=== PATIENT | female | born 1970 | race Caucasian/White ===

== ENCOUNTER → 2016-11-25 | Outpatient (CLI) | payer MEDICAID ==
[~2016-11-25] MED LIST: ALBUTEROL0.83 MG/ML IH; ASPIRIN 81M81 MG/TA2 PO; CALCIUM 600-D 61 TAB PO; CANA100T PO; FISH OIL 1000MG1 CAP PO; FISH OIL500 MG PO; FLEXERIL 1010 MG/TAB PO; GLUCOPHAGE850 MG/TAB PO; K-DUR20 MEQ PO; LEVEMIR FLEX100 U/ML SQ; LORTAB 7.5/5001 TAB PO; NORCO 325 MG-101 TAB PO; NORCO 325 MG-51 TAB PO; NOVOLOG FLEX100 U/ML SQ; OMNICEF 300MG300 MG PO; PHENERGAN 25 TA25 MG PO; PRAVACHOL 40MG40 MG PO; TRADJENTA5 MG PO; ZESTRIL 5MG5 MG PO; ZITHROMAX 250M250 MG PO; [UNRECOGNIZED DRUG - REMARK]
== END ==
LOC: COL.RAD 15:15
DX: G62.9 Polyneuropathy, unspecified (principal)

== ENCOUNTER → 2017-03-31 | Outpatient (CLI) | payer MEDICAID | LOC: SUN.DIA 04-29 11:58 | DX: E11.9 Type 2 diabetes mellitus without complications (principal); Z79.4 Long term (current) use of insulin; E78.5 Hyperlipidemia, unspecified; I10 Essential (primary) hypertension; Z71.3 Dietary counseling and surveillance; Z87.891 Personal history of nicotine dependence | CPT/HCPCS: G0108 ==

== ENCOUNTER → 2017-04-01 | Outpatient (CLI) | payer MEDICAID | LOC: SUN.DIA 13:37 | DX: E11.9 Type 2 diabetes mellitus without complications (principal); Z79.4 Long term (current) use of insulin; E78.5 Hyperlipidemia, unspecified; I10 Essential (primary) hypertension; E66.9 Obesity, unspecified; Z68.42 Body mass index [BMI] 45.0-49.9, adult; Z71.3 Dietary counseling and surveillance; Z87.891 Personal history of nicotine dependence | CPT/HCPCS: G0108 ==

== ENCOUNTER → 2017-06-04 | Outpatient (CLI) | payer MEDICAID ==
[~2017-06-04] MED LIST changes: +JANUVIA 100MG100 MG PO; +LOVAZA1 GM PO; +NEURONTIN300 MG/CAP PO; +OSCAL 500 TAB500 MG PO; +PRILOSEC 20MG20 MG PO; +ULTRAM 50MG TAB50 MG PO
== END ==
LOC: SUN.DIA 09:34
DX: E11.9 Type 2 diabetes mellitus without complications (principal); Z79.4 Long term (current) use of insulin; E78.5 Hyperlipidemia, unspecified; I10 Essential (primary) hypertension; E66.9 Obesity, unspecified; Z68.42 Body mass index [BMI] 45.0-49.9, adult; Z71.3 Dietary counseling and surveillance; Z87.891 Personal history of nicotine dependence
CPT/HCPCS: G0108

== ENCOUNTER 2017-06-22 22:43 | Emergency (ER) | payer MEDICAID ==
[~2017-06-22] VITALS: Ht 170.2 cm; Wt 117.7 kg
[2017-06-22 22:51] VITALS: BP 187/78; TEMP 98.1
[2017-06-22] MEDS ORDERED: ULTRAM 50MG TAB50 MG PO (23:42)
[2017-06-22 23:49] VITALS: PULSE 91
== END 2017-06-22 23:49 | disposition home or self-care (01) ==
LOC: COL.ER 22:43
DX: M54.32 Sciatica, left side (principal); E11.69 Type 2 diabetes mellitus with other specified complication; M86.9 Osteomyelitis, unspecified; E66.9 Obesity, unspecified; Z68.41 Body mass index [BMI] 40.0-44.9, adult; Z87.891 Personal history of nicotine dependence; Z79.4 Long term (current) use of insulin; Z79.82 Long term (current) use of aspirin
CPT/HCPCS: J1170; J2550

== ENCOUNTER 2017-06-25 23:35 | Emergency (ER) | payer MEDICAID ==
[~2017-06-25] VITALS: Ht 170.2 cm; Wt 122.7 kg
[2017-06-25 23:46] VITALS: TEMP 98.1
[2017-06-26 03:26] VITALS: BP 157/85; PULSE 98
[2017-06-28] MEDS ORDERED: NORCO 325 MG-51 TAB PO (18:26)
== END 2017-06-26 03:28 | disposition home or self-care (01) ==
LOC: COL.ER 23:35
DX: M54.32 Sciatica, left side (principal); E11.9 Type 2 diabetes mellitus without complications; Z79.4 Long term (current) use of insulin; Z79.82 Long term (current) use of aspirin
CPT/HCPCS: J1170; J1885; J2360

== ENCOUNTER → 2017-06-28 | Emergency (ER) | payer MEDICAID ==
[~2017-06-28] VITALS: Ht 170.2 cm; Wt 113.6 kg
[2017-06-28 16:28] VITALS: BP 165/94; PULSE 119; TEMP 97.6
== END ==
LOC: COL.ER 16:16
DX: M54.42 Lumbago with sciatica, left side (principal); E11.9 Type 2 diabetes mellitus without complications; Z79.4 Long term (current) use of insulin; Z79.82 Long term (current) use of aspirin; Z98.890 Other specified postprocedural states
CPT/HCPCS: J1885; J2360

== ENCOUNTER → 2017-07-22 | Outpatient (CLI) | payer MEDICAID ==
[2017-07-22 16:02] LABS: BASO % 0.3 % (0.0-2.0); EOS % 0.5 % (0-4.0); GRAN # 5.9 (1.4-6.5); GRAN % 67.5 % (42.2-75.2); HEMATOCRIT 43.4 % (37.0-47.0); HEMOGLOBIN 14.6 g/dl (12.5-16.0); LYMPH # 2.1 (1.2-3.4); LYMPH % 24.7 % (20.0-51.0); MEAN CELL VOLUME 85 fl (80.0-100.0); MEAN CORPUSCULAR HEMOGLOBIN 29 pg (27.0-31.0); MEAN CORPUSCULAR HGB CONC 34 g/dl (33.0-37.0); MEAN PLATELET VOLUME 10.7 fl (7.4-10.4); MONO # 0.6 (0.1-0.6); MONO % 6.8 % (1.7-9.3); PLATELET COUNT 266 K/mm3 (130-400); RED BLOOD COUNT 5.13 M/mm3 (4.10-5.30); WHITE BLOOD COUNT 8.7 K/mm3 (4.8-10.8)
[2017-07-22 16:16] LABS: ADJUSTED CALCIUM 9.5 mg/dL (8.4-10.2); ALBUMIN 3.6 gm/dL (3.5-5.0); BILIRUBIN,TOTAL 0.8 mg/dL (0.0-1.0); CALCIUM 9.2 mg/dL (8.4-10.2); CREATININE, serum 0.81 mg/dL (0.52-1.25); POTASSIUM 4.4 mmol/L (3.4-5.0); TOTAL PROTEIN 7.3 gm/dL (6.4-8.2)
== END ==
LOC: COL.RAD 15:32
PROVIDERS: Registered Nurse
DX: M51.34 Other intervertebral disc degeneration, thoracic region (principal); M51.36 Other intervertebral disc degeneration, lumbar region; Z98.890 Other specified postprocedural states

== ENCOUNTER 2017-07-30 13:15 | Outpatient (RCR) | payer MEDICAID ==
[2017-08-22] MEDS ORDERED: TAMIFLU 75MG75 MG PO (12:38)
[2017-08-22] MEDS ORDERED: DOXYCYCLINE 10100 MG PO (12:38)
== END 2017-09-20 | disposition home or self-care (01) ==
LOC: WSPT
DX: M54.32 Sciatica, left side (principal); Z98.890 Other specified postprocedural states
CPT/HCPCS: G0283-GP

== ENCOUNTER 2017-08-22 10:42 | Emergency (ER) | payer MEDICAID ==
[~2017-08-22] VITALS: Ht 157.5 cm; Wt 113.6 kg
[2017-08-22 11:05] VITALS: TEMP 98.4
[2017-08-22 11:56] LABS: INFLUENZA A NEGATIVE; INFLUENZA B NEGATIVE
[2017-08-22] MEDS ORDERED: TAMIFLU 75MG75 MG PO (12:38)
[2017-08-22] MEDS ORDERED: DOXYCYCLINE 10100 MG PO (12:38)
[2017-08-22 13:08] VITALS: BP 126/69; PULSE 88
== END 2017-08-22 13:25 | disposition home or self-care (01) ==
LOC: COL.ER 10:42
PROVIDERS: Nurse Practitioner
DX: J06.9 Acute upper respiratory infection, unspecified (principal); I10 Essential (primary) hypertension; E11.9 Type 2 diabetes mellitus without complications; E78.5 Hyperlipidemia, unspecified; Z90.49 Acquired absence of other specified parts of digestive tract; Z79.4 Long term (current) use of insulin

== ENCOUNTER 2017-09-22 16:13 | Emergency (ER) | payer MEDICAID ==
[~2017-09-22] VITALS: Ht 160 cm; Wt 104.5 kg
[~2017-09-22 16:13] MED LIST changes: +DOXYCYCLINE 10100 MG PO; +TAMIFLU 75MG75 MG PO
[2017-09-22 16:34] VITALS: TEMP 99.3
[2017-09-22] MEDS ORDERED: ZITHROMAX Z PA250 MG PO (18:59)
[2017-09-22 19:19] VITALS: BP 121/52; PULSE 96
== END 2017-09-22 19:50 | disposition home or self-care (01) ==
LOC: COL.ER 16:13
DX: J20.9 Acute bronchitis, unspecified (principal); E11.9 Type 2 diabetes mellitus without complications; I10 Essential (primary) hypertension; Z79.4 Long term (current) use of insulin; Z79.82 Long term (current) use of aspirin; Z87.891 Personal history of nicotine dependence

== ENCOUNTER 2017-11-11 10:42 | Emergency (ER) | payer MEDICAID ==
[~2017-11-11] VITALS: Ht 167.6 cm; Wt 114.1 kg
[~2017-11-11 10:42] MED LIST changes: +ZITHROMAX Z PA250 MG PO
[2017-11-11 11:01] VITALS: BP 170/74
[2017-11-11 11:32] LABS: BASO % 0.4 % (0.0-2.0); EOS # 0.1 (0.0-0.7); EOS % 1.3 % (0-4.0); GRAN # 4.3 (1.4-6.5); GRAN % 60.6 % (42.2-75.2); HEMATOCRIT 38.5 % (37.0-47.0); HEMOGLOBIN 12.8 g/dl (12.5-16.0); LYMPH # 2.2 (1.2-3.4); LYMPH % 30.9 % (20.0-51.0); MEAN CELL VOLUME 85 fl (80.0-100.0); MEAN CORPUSCULAR HEMOGLOBIN 28 pg (27.0-31.0); MEAN CORPUSCULAR HGB CONC 33 g/dl (33.0-37.0); MEAN PLATELET VOLUME 10.7 fl (7.4-10.4); MONO # 0.5 (0.1-0.6); MONO % 6.5 % (1.7-9.3); PLATELET COUNT 317 K/mm3 (130-400); RED BLOOD COUNT 4.51 M/mm3 (4.10-5.30); REDCELL DISTRIBUTION WIDTH-CV 12.9 % (11.5-14.5)
[2017-11-11 11:38] LABS: ALBUMIN 3.1 gm/dL (3.5-5.0); BILIRUBIN,TOTAL 0.3 mg/dL (0.0-1.0); C-REACTIVE PROTEIN 1.8 mg/dL (0.0-0.9); CREATININE, serum 0.68 mg/dL (0.52-1.25); POTASSIUM 3.7 mmol/L (3.4-5.0); TOTAL PROTEIN 7.5 gm/dL (6.4-8.2)
[2017-11-11] MEDS ORDERED: CEPHALEXIN500 M1 PO (12:04)
[2017-11-11 13:46] VITALS: PULSE 87; TEMP 97.3
== END 2017-11-11 12:34 | disposition home or self-care (01) ==
LOC: COL.ER 10:42
PROVIDERS: Physician Assistant
DX: S91.301A Unspecified open wound, right foot, initial encounter (principal); E11.65 Type 2 diabetes mellitus with hyperglycemia; E11.40 Type 2 diabetes mellitus with diabetic neuropathy, unspecified; Z79.4 Long term (current) use of insulin; Z79.82 Long term (current) use of aspirin; X58.XXXA Exposure to other specified factors, initial encounter

== ENCOUNTER → 2018-04-01 | Outpatient (CLI) | payer MEDICAID ==
[~2018-04-01] MED LIST changes: +CEPHALEXIN500 M1 PO
== END ==
LOC: SUN.DIA
DX: E11.9 Type 2 diabetes mellitus without complications (principal); E78.5 Hyperlipidemia, unspecified; I10 Essential (primary) hypertension; E66.9 Obesity, unspecified; F17.210 Nicotine dependence, cigarettes, uncomplicated
CPT/HCPCS: G0108

== ENCOUNTER → 2018-05-25 | Outpatient (CLI) | payer MEDICARE, MEDICAID ==
[~2018-05-25] VITALS: Ht 167.6 cm; Wt 115.4 kg
[2018-05-25 10:15] VITALS: BP 116/60; PULSE 80
== END ==
LOC: LIGHT 08:29
DX: E11.9 Type 2 diabetes mellitus without complications (principal); E78.5 Hyperlipidemia, unspecified; G47.33 Obstructive sleep apnea (adult) (pediatric); E66.01 Morbid (severe) obesity due to excess calories; Z71.3 Dietary counseling and surveillance; Z68.41 Body mass index [BMI] 40.0-44.9, adult
CPT/HCPCS: G0463

== ENCOUNTER 2018-12-03 21:16 | Emergency (ER) | payer MEDICARE, MEDICAID | END 2018-12-03 21:37 | disposition left against medical advice (07) | LOC: COL.ER 21:16 | DX: Z72.9 Problem related to lifestyle, unspecified (principal) ==

== ENCOUNTER → 2019-01-26 | Emergency (ER) | payer MEDICARE, MEDICAID ==
[~2019-01-26] VITALS: Ht 167.6 cm; Wt 115.0 kg
[2019-01-26 15:35] VITALS: BP 107/63; PULSE 94; TEMP 98
== END ==
LOC: COL.ER 15:22
DX: H69.91 Unspecified Eustachian tube disorder, right ear (principal); E11.9 Type 2 diabetes mellitus without complications; I10 Essential (primary) hypertension; Z79.4 Long term (current) use of insulin; Z79.82 Long term (current) use of aspirin; Z88.5 Allergy status to narcotic agent

== ENCOUNTER → 2019-04-22 | Outpatient (CLI) | payer MEDICARE, MEDICAID | LOC: COL.RAD 11:35 | DX: R05 Cough (principal); R06.02 Shortness of breath ==

== ENCOUNTER 2019-05-22 22:08 | Inpatient (IN) | payer MEDICARE, MEDICAID ==
[~2019-05-22] VITALS: Ht 162.6 cm; Wt 103.6 kg
[2019-05-22 22:49] LABS: BASO % 0.4 % (0.0-2.0); EOS # 0.1 (0.0-0.7); EOS % 0.5 % (0-4.0); GRAN # 7.4 (1.4-6.5); GRAN % 67.1 % (42.2-75.2); HEMATOCRIT 38.5 % (37.0-47.0); HEMOGLOBIN 13.1 g/dl (12.5-16.0); LYMPH # 2.5 (1.2-3.4); LYMPH % 22.7 % (20.0-51.0); MEAN CELL VOLUME 86 fl (80.0-100.0); MEAN CORPUSCULAR HEMOGLOBIN 29 pg (27.0-31.0); MEAN CORPUSCULAR HGB CONC 34 g/dl (33.0-37.0); MEAN PLATELET VOLUME 10.7 fl (7.4-10.4); MONO % 8.9 % (1.7-9.3); PLATELET COUNT 229 K/mm3 (130-400); REDCELL DISTRIBUTION WIDTH-CV 13.1 % (11.5-14.5)
[2019-05-22 23:03] LABS: ALBUMIN 3.6 gm/dL (3.5-5.0); BILIRUBIN,TOTAL 0.6 mg/dL (0.0-1.0); CALCIUM 8.5 mg/dL (8.4-10.2); CREATININE, serum 0.64 (0.52-1.25); POTASSIUM 4.1 mmol/L (3.4-5.0); TOTAL PROTEIN 7.4 gm/dL (6.4-8.2)
[2019-05-23] VITALS (7 sets, daily range): BP systolic 114–151; BP diastolic 52–68; PULSE 84–96; TEMP 97.7–98.7
[2019-05-23 00:22] LABS: TRICYCLIC ANTIDEPRESS URINE NEGATIVE
[2019-05-23 07:14] LABS: HEMOGLOBIN 11.7 g/dl (12.5-16.0); MEAN CELL VOLUME 86 fl (80.0-100.0); MEAN CORPUSCULAR HEMOGLOBIN 29 pg (27.0-31.0); MEAN CORPUSCULAR HGB CONC 33 g/dl (33.0-37.0); PLATELET COUNT 198 K/mm3 (130-400); REDCELL DISTRIBUTION WIDTH-CV 13.1 % (11.5-14.5)
[2019-05-23 07:15] LABS: HEMATOCRIT 35.1 % (37.0-47.0)
--- NOTE | 2019-05-23 07:24 | NUR ---
Vancomycin Initial Dosing Pharmacy Note Ordering provider: Akira Butterfield B.MD Indication/duration: Cellulitis Relevant comorbidities: DM LABS: est Crcl >90 Recommendation: 1.5 g IV q12h Loading dose: 1.5 grams Maintenance dose: 1.5 grams every 12 hours Trough goal: 10-15 ug/mL
[2019-05-23 07:36] LABS: CREATININE, serum 0.5 (0.52-1.25); POTASSIUM 3.5 mmol/L (3.4-5.0)
--- NOTE | 2019-05-23 07:48 | NUR ---
Pt brought up from ER to Rm 319 per cart. Spouse at bedside. Pt called son several times last night and had him come to the hospital. He had fast food with him and not sure if he had brought some for him. Order from Dr Anne is to not allow brought in food to pt. Dr Camacho notified of pt blood sugar of 507. Order received to give 14 units and recheck in 2 hours. Blood sugar was 239 when rechecked and 6 units Novolog given. IV fluids infusing at 125mL/hr in R FA. SBA when ambulating to BR. Call light in reach.
[2019-05-23 08:04] LABS: TSH w REFLEX 1.57 uIU/mL (0.465-4.680)
--- NOTE | 2019-05-23 11:04 | NUR ---
Initial visit; Patient thanked Cut Off Machine Unloader for coming and offering prayer. Cut Off Machine Unloader used sign language to communicate with Dutch patient.
--- NOTE | 2019-05-23 14:44 | NUR ---
SW's met with the patient to discuss discharge plan. The patient speaks Kuwaiti. SW used [employer]. The patient lives in [place] with her daughter's father, Kwadwo Damon. She states that they are friends now. She states that her daughter, Kellen Damon (ph#[phone]), lives nearby. She reports independence with ADLs and has a walker. The patient's PCP is Jin Gallagher APRN and she receives her medications at [facility]. She reports no difficulties obtaining her meds. The patient does not have advanced directives completed and she was not interested in completing them at this time. She states that her next-of-kin is her daughter, Kellen. The patient plans to return back home with Kwadwo upon discharge. The patient did have questions about getting set up with someone who can treat and manage her blood sugar. FAITH notified the patient's Michelle ROPER. SW to continue to follow.
--- NOTE | 2019-05-23 19:00 | NUR ---
PT HAS RECIEVED SCHEDULED MEDS. WENT DOWN FOR MRI, AND HAD A DOPPLER DONE ON LEGS. MRI STATED THAT THERE WAS NO EVIDENCE OF OSTEOMYLITIS. PT VOICED ANXIOUSNES ABOUT HAVING TO GET LEG CUT OFF THROUGHOUT THE DAY. THIS NURSE INFORMED THE PT AND DAUGHTER THAT THE MRI DIDNT LOOK LIKE INFECTION IN THE BONE FROM WHAT IT LOOKED LIKE TO ME ON THE SCAN BUT THE DOCTOR WILL GO OVER IT IN THE MORNING. PT HAS NEEDED S/S INSULIN REGULARLY THIS SHIFT. PT TOOK A SHOWER, THIS NURSE CHANGED DRESSING AFTERWARDS. NO C/O PAIN IN LEG TODAY, PT AND DAUGHTER STATED THAT IT LOOKED AND FELT BETTER TODAY THEN YESTERDAY
--- NOTE | 2019-05-23 20:05 | NUR ---
Shift assessment complete. Pt resting in bed, awake, a&o, cooperative c cares. Pt denies pain or any other c/o at this time. IV patent. Pt denies needs at this time. Family at bedside. Call light in reach, will monitor
[2019-05-24 00:14] VITALS: BP 141/62; PULSE 82; TEMP 98.1
[2019-05-24 04:12] VITALS: BP 110/68; PULSE 78; TEMP 98
[2019-05-24 07:05] LABS: BASO % 0.5 % (0.0-2.0); EOS # 0.2 (0.0-0.7); EOS % 2.5 % (0-4.0); GRAN # 3.1 (1.4-6.5); HEMOGLOBIN 11.7 g/dl (12.5-16.0); LYMPH # 3.4 (1.2-3.4); LYMPH % 46.2 % (20.0-51.0); MEAN CELL VOLUME 87 fl (80.0-100.0); MEAN CORPUSCULAR HEMOGLOBIN 29 pg (27.0-31.0); MEAN CORPUSCULAR HGB CONC 33 g/dl (33.0-37.0); MEAN PLATELET VOLUME 10.8 fl (7.4-10.4); MONO # 0.6 (0.1-0.6); MONO % 8.5 % (1.7-9.3); PLATELET COUNT 220 K/mm3 (130-400); RED BLOOD COUNT 4.09 M/mm3 (4.10-5.30); REDCELL DISTRIBUTION WIDTH-CV 12.9 % (11.5-14.5)
[2019-05-24 07:15] VITALS: BP 128/61; PULSE 79; TEMP 97.6
[2019-05-24 07:15] LABS: HEMATOCRIT 35.5 % (37.0-47.0)
--- NOTE | 2019-05-24 07:15 | NUR ---
Received report, patient is sitting up in recliner awake and alert. Did say hello. Water, call light and personal items are within reach.
[2019-05-24 07:19] LABS: CALCIUM 8.2 mg/dL (8.4-10.2); CREATININE, serum 0.47 (0.52-1.25); POTASSIUM 3.6 mmol/L (3.4-5.0)
[2019-05-24] MEDS ORDERED: DOXYCYCLINE 10100 MG PO (10:27)
[2019-05-24 10:58] VITALS: BP 127/67; PULSE 80; TEMP 97.7
--- NOTE | 2019-05-24 11:11 | NUR ---
FAITH attended clinical rounds. The patient reports that she would just be interested with switching to a new female PCP that can speak icelandic or has translators. FAITH contacted [facility] and the [facility]. [facility] reports that they have three female doctors taking new patients and that they have translators. FAITH met with the patient to inform. FAITH used [employer]. The patient reports that she would be agreeable to being set up with a female PCP at [facility] and did not have a preference on provider. FAITH informed the patient's Lauryn ROPER. The clinical unit educator secured the patient an appointment with Dr. Eneida Arora. The patient is to discharge back home with her friend (Kwadwo) today, 05/24. No additional needs at this time.
--- NOTE | 2019-05-24 11:15 | NUR ---
0730- Pt laying in bed. A & O. Pt states has no pain. Assessment completed. Pt has a wound L plantar foot. L acewrap w/ gauze covering. Wound is clean, dry, intact. L foot has edema, +2 pitting. Skin is warm & intact. Pedal pulses audible by doppler. 1100- Pt up in am, now resting in bed. Pt awaiting discharge. No changes noted to assessment.
--- NOTE | 2019-05-24 15:40 | NUR ---
Patient to discharge home, states daughter will get her. Told her she could dress. Armenian discharge instructions given to patient. Personal belongings being gathered.
--- NOTE | 2019-05-24 17:12 | NUR ---
Patient discharged home with family at 1650. Appointment instructions reviewed with daughter who relayed them to the patient. Verbal understanding was verbalized. Personal items were sent with patient, discharged from floor via wheelchair with personal belongings. Left hospital via private vehicle.
== END 2019-05-24 16:50 | disposition home or self-care (01) | DRG 638 ==
LOC: COL.ER 22:08 → MEDICAL 23:16
PROVIDERS: Emergency Medicine; Physician Assistant; ADMIT Student in an Organized Health Care Education/Training Program
DX: E11.628 Type 2 diabetes mellitus with other skin complications (principal); L03.116 Cellulitis of left lower limb; E66.01 Morbid (severe) obesity due to excess calories; K21.9 Gastro-esophageal reflux disease without esophagitis; Z88.5 Allergy status to narcotic agent; Z91.040 Latex allergy status; E11.65 Type 2 diabetes mellitus with hyperglycemia
CPT/HCPCS: 99222-AI; 99233-AI; 99239; A9585; J0696; J1650; J1815; J2543; J3370; J7030; J7050

== ENCOUNTER 2019-08-13 00:39 | Emergency (ER) | payer MEDICARE, MEDICAID ==
[~2019-08-13] VITALS: Ht 167.6 cm; Wt 115.5 kg
[2019-08-13 00:50] VITALS: BP 146/81; TEMP 97
[2019-08-13] MEDS ORDERED: CIPRODEX OT (01:09)
[2019-08-13 01:27] VITALS: PULSE 82
== END 2019-08-13 01:30 | disposition home or self-care (01) ==
LOC: COL.ER 00:39
DX: H60.92 Unspecified otitis externa, left ear (principal); Z79.4 Long term (current) use of insulin; Z79.82 Long term (current) use of aspirin

== ENCOUNTER 2019-09-26 08:43 | Day surgery (SDC) | payer MEDICARE, MEDICAID ==
[~2019-09-26] VITALS: Ht 167.7 cm; Wt 119.0 kg
[2019-09-26] VITALS (9 sets, daily range): BP systolic 120–164; BP diastolic 75–86; PULSE 80–88; TEMP 97.1
[~2019-09-26 08:43] MED LIST changes: +CIPRODEX OT
[2019-09-26 09:38] LABS: HEMATOCRIT 39.6 % (37.0-47.0); HEMOGLOBIN 13.2 g/dl (12.5-16.0); MEAN CELL VOLUME 85 fl (80.0-100.0); MEAN CORPUSCULAR HEMOGLOBIN 28 pg (27.0-31.0); MEAN CORPUSCULAR HGB CONC 33 g/dl (33.0-37.0); MEAN PLATELET VOLUME 10.7 fl (7.4-10.4); PLATELET COUNT 253 K/mm3 (130-400); RED BLOOD COUNT 4.66 M/mm3 (4.10-5.30); REDCELL DISTRIBUTION WIDTH-CV 13.1 % (11.5-14.5)
[2019-09-26] MEDS ORDERED: TRULICITY1.5 MG/0.5 SQ (09:41)
[2019-09-26 09:51] LABS: INR 0.9 (0.8-3.0); PROTHROMBIN TIME 10.4 SECONDS (9.7-12.8)
[2019-09-26 10:09] LABS: CALCIUM 8.7 mg/dL (8.4-10.2); CREATININE, serum 0.56 (0.52-1.25); POTASSIUM 4.4 mmol/L (3.4-5.0)
--- NOTE | 2019-09-26 10:22 | NUR ---
SEE MERGE DOCUMENTATION FOR MEDICATION ADMINISTRATION TIMES AND INTRA/POST PROCEDURE SEDATION ASSESSMENT DOUMENTATION. POSITIVE BARBEAU TEST, PLAN FOR RIGHT RADIAL ACCESS. RIGHT WRIST AND RIGHT GROIN PREPPED.
--- NOTE | 2019-09-26 11:10 | NUR ---
pt to eu 12 via bed from greens laborer, report from Cassi RN, pt was inst. by Cassi about bedrest and TR band on right wrist. Pt should call light and red button for nurse, and green for TV, pt takes water, coffee and crackers, meal ordered
--- NOTE | 2019-09-26 11:14 | NUR ---
PATIENT TRANSFERRED FROM PARTY HOST/HOSTESS TO [facility]. VSS, RIGHT WRIST WITH TR BAND IN PLACE (12 CC AIR), DRESSING CLEAN DRY IN TACT. BEDSIDE HANDOFF TO CURTIS BOURNE.
--- NOTE | 2019-09-26 11:40 | NUR ---
pt sits up in bed, daughter in room now. no c/o
[2019-09-26] MEDS ORDERED: LASIX 20MG TABL20 MG PO (12:50)
--- NOTE | 2019-09-26 13:15 | NUR ---
BAND RELEASED 2ML EVERY 5 MIN WITH NO BLEEDING, SITE CLEAN AND DRY. BANDAID AND COBAN OVER SITE, PT UP WALKING WITH DAUGHTER, TOLERATED WELL, GAIT STEADY.
--- NOTE | 2019-09-26 14:00 | NUR ---
INT D'CD INTACT, PT UP AND DRESSED, REVIEWED DISCHARGE INST.WITH DAUGHTER TO INTERPRET TO PT. REVIEWED SITE CARE, ACTIVITY, DR LUIZA APPT. MADE ALSO. PT WILL BOWLING BALL WEIGHER AND PACKER NEW RX OF LASIX THAT IS ORDERED AT [facility]. ALSO DISCUSSED WHAT TO WATCH FOR ON SITE AND SIGNS OF BLEEDING WITH DAUGHTER. PT DISCHARGED VIA W/C AT 1420 WITH DAUGHTER
== END 2019-09-26 14:20 | disposition home or self-care (01) ==
LOC: COL.CAR 08:43
PROVIDERS: Internal Medicine Cardiovascular Disease
DX: R94.39 Abnormal result of other cardiovascular function study (principal); R07.9 Chest pain, unspecified; I10 Essential (primary) hypertension; E78.5 Hyperlipidemia, unspecified; E11.9 Type 2 diabetes mellitus without complications; E66.9 Obesity, unspecified; M79.604 Pain in right leg; M79.605 Pain in left leg; I73.9 Peripheral vascular disease, unspecified; G47.33 Obstructive sleep apnea (adult) (pediatric); Z79.4 Long term (current) use of insulin; Z79.82 Long term (current) use of aspirin; Z88.5 Allergy status to narcotic agent; Z91.040 Latex allergy status
CPT/HCPCS: J1644; J2250

== ENCOUNTER → 2019-12-08 | Outpatient (CLI) | payer MEDICARE, MEDICAID ==
[~2019-12-08] MED LIST changes: +LASIX 20MG TABL20 MG PO; +TRULICITY1.5 MG/0.5 SQ
== END ==
LOC: ZCOL.LAB 17:46
DX: R60.0 Localized edema (principal)

== ENCOUNTER → 2020-02-08 | Outpatient (CLI) | payer MEDICARE, MEDICAID, OTHER | LOC: ZCOL.LAB 07:18 | DX: Z01.812 Encounter for preprocedural laboratory examination (principal); Z20.828 Contact with and (suspected) exposure to other viral communicable diseases ==

== ENCOUNTER → 2020-05-16 | Outpatient (CLI) | payer MEDICARE, MEDICAID | LOC: COL.RAD 10:06 | DX: N95.0 Postmenopausal bleeding (principal) ==

== ENCOUNTER → 2021-09-06 | Outpatient (CLI) | payer MEDICARE, MEDICAID | LOC: COL.RAD 11:48 | DX: N93.9 Abnormal uterine and vaginal bleeding, unspecified (principal) ==

== ENCOUNTER → 2021-10-23 | Outpatient (CLI) | payer MEDICARE, MEDICAID | LOC: COL.RAD 10-17 12:00 | DX: N93.9 Abnormal uterine and vaginal bleeding, unspecified (principal) ==